=== PATIENT | male | born 1975 | race Caucasian/White ===

== ENCOUNTER 2016-06-20 13:57 | Emergency (ER) | payer MEDICAID | END 2016-06-20 20:04 | disposition home or self-care (01) | LOC: D.ER 13:57 | DX: S62.101A Fracture of unspecified carpal bone, right wrist, initial encounter for closed fracture (principal); X58.XXXA Exposure to other specified factors, initial encounter; Y93.89 Activity, other specified; Y92.89 Other specified places as the place of occurrence of the external cause; T23.002A Burn of unspecified degree of left hand, unspecified site, initial encounter; I10 Essential (primary) hypertension ==